=== PATIENT | female | born 1980 | race Hispanic/Latino ===

== ENCOUNTER 2016-05-10 14:29 | Emergency (ER) | payer SELFPAY ==
[2016-05-10 15:01] VITALS: BP 124/75
== END 2016-05-10 16:27 | disposition left against medical advice (07) ==
LOC: ED 14:29
DX: R07.0 Pain in throat (principal); R06.02 Shortness of breath; F17.200 Nicotine dependence, unspecified, uncomplicated; Z53.21 Procedure and treatment not carried out due to patient leaving prior to being seen by health care provider